=== PATIENT | male | born 1980 | race American Indian/Alaskan Native ===

== ENCOUNTER 2018-06-02 11:02 | Day surgery (SDC) | payer OTHER ==
[2018-06-02 11:53] LABS: Basophils # (Auto) 0.1 K/mm3 (0.0-0.1); Basophils % (Auto) 1.2 % (0.0-1.8); Eosinophils # (Auto) 0.2 K/mm3 (0.0-0.4); Hematocrit 39.5 % (35.5-45.6); Hemoglobin 13.4 gm/dl (11.8-15.2); Lymphocytes # (Auto) 1.4 K/mm3 (1.2-5.4); Lymphocytes % (Auto) 27.4 % (13.4-35.0); Mean Corpuscular HGB Conc 34 % (32-34); Mean Corpuscular Volume 84 fl (84-94); Monocytes # (Auto) 0.5 K/mm3 (0.0-0.8); Monocytes % (Auto) 9.8 % (0.0-7.3); Platelet Count 200 K/mm3 (140-440); Red Blood Count 4.69 M/mm3 (3.65-5.03); Red Cell Distribution Width 16.1 % (13.2-15.2)
[2018-06-02] MEDS ORDERED: NACL 0.9% 500 ML 500 ML IV SCH (12:00)
[2018-06-02] MEDS ORDERED: HURRICAINE ONE 20% TOPICAL SPRAY MM NR (12:00)
[2018-06-02 12:10] LABS: BUN/Creatinine Ratio 18; Blood Urea Nitrogen 14 mg/dL (9-20); Calcium 9.2 mg/dL (8.4-10.2); Hemolysis Index 17
[2018-06-02 12:12] LABS: INR 0.97 (0.87-1.13)
--- NOTE | 2018-06-02 12:49 | Anesthesia Day of Surgery ---
Anesthesia Day of Surgery - Day of Surgery Patient H&P Reviewed: Yes Patient is NPO: Yes
--- NOTE | 2018-06-02 12:49 | Anesthesia Consultation ---
<SAVANNA ALMODOVAR - Last Filed: 06/02/18 12:48> Anesthesia Consult and Med Hx Date of service: 06/02/18 - Airway Anesthetic Teeth Evaluation: Good ROM Head & Neck: Adequate Mental/Hyoid Distance: Adequate Mallampati Class: Class II Intubation Access Assessment: Probably Good - Pre-Operative Health Status ASA Pre-Surgery Classification: ASA2 - Pulmonary Hx Smoking: Yes - Cardiovascular System Hx Valvular Heart Disease: Yes (Aortic Stenosis congenital) - Central Nervous System Hx Psychiatric Problems: No - Other Systems Hx Alcohol Use: No <IVANA HARRINGTON - Last Filed: 06/02/18 13:47> Anesthesia Consult and Med Hx - Pre-Operative Health Status ASA Pre-Surgery Classification: ASA3
[2018-06-02] MEDS ORDERED: DIPRIVAN 10 MG/ML IV ONE ×3 (13:13→14:37)
[2018-06-02] MEDS ORDERED: AMIDATE IV ONE (13:13)
[2018-06-02] MEDS ORDERED: VERSED ONE (13:13)
[2018-06-02] MEDS ORDERED: SUBLIMAZE ONE (13:14)
[2018-06-02] MEDS ORDERED: DECADRON ONE (13:21)
[2018-06-02] MEDS ORDERED: ZOFRAN ONE (13:21)
[2018-06-02 16:39] VITALS: BP 92/45
== END 2018-06-02 17:25 | disposition home or self-care (01) ==
LOC: EDSEX 11:02 → CATHLABREC 11:02 → EDSTATUS 12:00 → CATHLABREC 17:25
PROVIDERS: ATTEND Internal Medicine Cardiovascular Disease
DX: I08.3 Combined rheumatic disorders of mitral, aortic and tricuspid valves (principal); F17.210 Nicotine dependence, cigarettes, uncomplicated; Z79.01 Long term (current) use of anticoagulants; Z79.899 Other long term (current) drug therapy
CPT/HCPCS: 36415; 80048; 85025; 85610; 85730; 93312; 93320; 93325; J1100; J2250; J2405; J2704; J3010; J7040